=== PATIENT | female | born 1965 | race Caucasian/White ===

== ENCOUNTER → 2017-02-28 | Outpatient (CLI) | payer BC ==
[~2017-02-28] MED LIST: AMLO10TA62 PO; ASCO-324 PO; CALC-586 PO; FERR325T6 PO; MULT-1198 PO; OMEP-122 PO; OXAZ15CA PO; PRAV40TA46 PO; SERT-88 PO; THYR120T14 PO; THYR90TA PO; ZOLP5TAB2 PO
== END ==
LOC: WC.BC 16:08
DX: Z12.31 Encounter for screening mammogram for malignant neoplasm of breast (principal); N64.59 Other signs and symptoms in breast; R92.8 Other abnormal and inconclusive findings on diagnostic imaging of breast
CPT/HCPCS: 77063; G0202

== ENCOUNTER → 2017-03-05 | Outpatient (CLI) | payer BC | LOC: WC.BC 09:42 | PROVIDERS: ATTEND Family Medicine | DX: D48.61 Neoplasm of uncertain behavior of right breast (principal); N64.59 Other signs and symptoms in breast; N63 Unspecified lump in breast; R92.2 Inconclusive mammogram | CPT/HCPCS: 76642; G0206 ==

== ENCOUNTER → 2017-03-14 | Outpatient (CLI) | payer BC ==
[~2017-03-14] MED LIST changes: +LIDOCAINE 1% 30ml (STERI-PAK) ONE; +LIDOCAINE 2%/EPI 1:100,000 20ml MDV ONE; +NORMAL SALINE 250 ML IV ONE
== END ==
LOC: WC.BC 09:09
PROVIDERS: ATTEND Family Medicine
DX: N60.21 Fibroadenosis of right breast (principal); N60.31 Fibrosclerosis of right breast; N60.81 Other benign mammary dysplasias of right breast; N64.59 Other signs and symptoms in breast; R92.8 Other abnormal and inconclusive findings on diagnostic imaging of breast; N63 Unspecified lump in breast
CPT/HCPCS: 19081; A4648; G0206; J7050